=== PATIENT | male | born 1995 | race Caucasian/White ===

== ENCOUNTER 2018-11-18 12:02 | Observation (INO) | payer OTHER ==
[2018-11-18] MEDS ORDERED: NS 0.9% 1000 ML** 1,000 ML IV ONE (12:51)
[2018-11-18] MEDS ORDERED: LORazepam TAB(*) 1 MG PO ONE (12:51)
[2018-11-18 13:02] LABS: ABS Basophils 0.1 10^3/ul (0-0.2); ABS Eosinophils 0.1 10^3/ul (0-0.6); ABS Lymphocytes 1.1 10^3/ul (1.0-4.8); ABS Monocytes 0.3 10^3/ul (0-0.8); ABS Neutrophils 3.6 10^3/ul (1.5-7.7); Eosinophil % 1.2 %; Hematocrit 44 % (42-52); Hemoglobin 15.6 g/dL (14.0-18.0); Lymphocyte % 21.9 %; Mean Corpuscular HGB Conc 35 g/dL (31-36); Mean Corpuscular Hemoglobin 31 pg (27-31); Mean Corpuscular Volume 88 fL (80-94); Mean Platelet Volume 8.1 fL (7.4-10.4); Nucleated Red Blood Cells % 0.1; Platelet Count 262 10^3/uL (150-450); Red Blood Count 5.04 10^6 /uL (4.18-5.48); Red Cell Distribution Width 13 % (10.5-15); White Blood Count 5.2 10^3/uL (3.5-10.8)
[2018-11-18 13:09] LABS: ALT 8 U/L (7-52); AST 15 U/L (13-39); Albumin/Globulin Ratio 1.9 (1-3); Alkaline Phosphatase 70 U/L (34-104); Anion Gap 10 mmol/L (2-11); BUN/Creatinine Ratio 10.5 (8-20); Blood Urea Nitrogen 11 mg/dL (6-24); CO2 Carbon Dioxide 26 mmol/L (22-32); Calcium 9.8 mg/dL (8.6-10.3); Chloride 103 mmol/L (101-111); EGFR African American 107.9 (>60); EGFR Non-African American 89.2 (>60); Globulin 2.6 g/dL (2-4); Glucose 87 mg/dL (70-100); Potassium 3.7 mmol/L (3.5-5.0); Sodium 139 mmol/L (135-145); Total Protein 7.6 g/dL (6.4-8.9)
[2018-11-18 13:18] LABS: Acetaminophen < 15 mcg/mL; Alcohol < 10 mg/dL (<10); Salicylate < 2.50 mg/dL (<30)
[2018-11-18 13:32] LABS: TSH (Thyroid Stimulating Horm) 1.83 mcIU/mL (0.34-5.60)
--- NOTE | 2018-11-18 13:42 | ED ---
Psychiatric Complaint - HPI Summary HPI Summary: A 22 y/o male brought in by [facility] ambulance accompanied by his father presents to [facility] with a chief complaint of a suicide attempt today. The patient took 20 pills of Benadryl at around 09:00 today. His father thought that the patient was going to graduate, but the patient told his father today that he failed a couple of classes. The patient is reportedly delusional and confused. He has not attempted suicide before but states that he is depressed. Pt denies any fever, chills, erythema of eyes, sore throat, CP, SOB, cough, abdominal pain, N/ V, dysuria, hematuria, myalgia, edema, rash, or dizziness. - History Of Current Complaint Chief Complaint: EDSuicidal Time Seen by Provider: 11/18/18 12:05 Hx Obtained From: Patient, Family/Nitrating Acid Mixer, EMS Onset/Duration: Sudden Onset, Lasting Hours, Still Present Timing: Hours Severity Initially: Severe Severity Currently: Severe Character: Depressed Aggravating Factor(s): Nothing Alleviating Factor(s): Nothing Associated Signs And Symptoms: Positive: Confused Has Suicidal: Reports: Thoughts, With A Plan, Demonstrates Gesture Has Homicidal: Denies: Thoughts - Allergies/Home Medications Allergies/Adverse Reactions: Allergies Allergy/AdvReac Type Severity Reaction Status Date / Time No Known Allergies Allergy Verified 11/18/18 13:17 Home Medications: Home Medications NK [No Home Medications Reported] 11/18/18 [History Confirmed 11/18/18] PMH/Surg Hx/FS Hx/Imm Hx Endocrine/Hematology History: Denies: Hx Diabetes Cardiovascular History: Denies: Hx Hypertension - Surgical History Surgery Procedure, Year, and Place: wisdom teeth removed. varicose veins scrotum Infectious Disease History: No Infectious Disease History: Denies: Traveled Outside the [place] in Last 30 Days - Family History Known Family History: Negative: Hypertension, Diabetes - Social History Alcohol Use: Rare Substance Use Type: Reports: None Smoking Status (MU): Never Smoked Tobacco Review of Systems Negative: Fever, Chills Negative: Erythema Negative: Sore Throat Negative: Chest Pain Negative: Shortness Of Breath, Cough Negative: Abdominal Pain, Vomiting, Nausea Negative: dysuria, hematuria Negative: Myalgia, Edema Negative: Rash Neurological: Negative - dizziness Psychological: Other - positive: suicide attempt, took 20 Benadryl All Other Systems Reviewed And Are Negative: Yes Physical Exam - Summary Physical Exam Summary: Constitutional: Well-developed, Well-nourished, Alert. (-) Distressed Skin: flushed HENT: Normocephalic; Atraumatic, Eyes: Conjunctiva normal, nystagmus Neck: Musculoskeletal ROM normal neck. (-) JVD, (-) Stridor, (-) Tracheal deviation Cardio: tachycardic, Heart sounds normal; Intact distal pulses; The pedal pulses are 2+ and symmetric. Radial pulses are 2+ and symmetric. (-) Murmur Pulmonary/Chest wall: Effort normal. (-) Respiratory distress, (-) Wheezes, (-) Rales Abd: Soft, (-) tenderness, (-) Distension, (-) Guarding, (-) Rebound Musculoskeletal: (-) Edema Lymph: (-) Cervical adenopathy Neuro: Alert, Oriented x3, confused Psych: Mood and affect Normal Triage Information Reviewed: Yes Vital Signs On Initial Exam: Initial Vitals Temp Pulse Resp BP Pulse Ox 99.3 F 99 15 149/97 100 11/18/18 12:05 11/18/18 12:05 11/18/18 12:05 11/18/18 12:05 11/18/18 12:05 Vital Signs Reviewed: Yes Diagnostics - Vital Signs Vital Signs Temp Pulse Resp BP Pulse Ox 11/18/18 13:17 19 11/18/18 12:05 99.3 F 99 15 149/97 100 - Laboratory Lab Results: Lab Results 11/18/18 11/18/18 Range/Units 12:38 12:38 WBC 5.2 (3.5-10.8) 10^3/uL RBC 5.04 (4.18-5.48) 10^6 /uL Hgb 15.6 (14.0-18.0) g/dL Hct 44 (42-52) % MCV 88 (80-94) fL MCH 31 (27-31) pg MCHC 35 (31-36) g/dL RDW 13 (10.5-15) % Plt Count 262 (150-450) 10^3/uL MPV 8.1 (7.4-10.4) fL Neut % (Auto) 69.1 % Lymph % (Auto) 21.9 % Elbert % (Auto) 6.3 % Eos % (Auto) 1.2 % Baso % (Auto) 1.5 % Absolute Neuts (auto) 3.6 (1.5-7.7) 10^3/ul Absolute Lymphs (auto) 1.1 (1.0-4.8) 10^3/ul Absolute Monos (auto) 0.3 (0-0.8) 10^3/ul Absolute Eos (auto) 0.1 (0-0.6) 10^3/ul Absolute Basos (auto) 0.1 (0-0.2) 10^3/ul Absolute Nucleated RBC 0.0 10^3/ul Nucleated RBC % 0.1 Sodium 139 (135-145) mmol/L Potassium 3.7 (3.5-5.0) mmol/L Chloride 103 (101-111) mmol/L Carbon Dioxide 26 (22-32) mmol/L Anion Gap 10 (2-11) mmol/L BUN 11 (6-24) mg/dL Creatinine 1.05 (0.67-1.17) mg/dL Est GFR ( Amer) 107.9 (>60) Est GFR (Non-Af Amer) 89.2 (>60) BUN/Creatinine Ratio 10.5 (8-20) Glucose 87 (70-100) mg/dL Calcium 9.8 (8.6-10.3) mg/dL Total Bilirubin 1.00 (0.2-1.0) mg/dL AST 15 (13-39) U/L ALT 8 (7-52) U/L Alkaline Phosphatase 70 (34-104) U/L Total Protein 7.6 (6.4-8.9) g/dL Albumin 5.0 (3.2-5.2) g/dL Globulin 2.6 (2-4) g/dL Albumin/Globulin Ratio 1.9 (1-3) TSH 1.83 (0.34-5.60) mcIU/mL Salicylates < 2.50 (<30) mg/dL Acetaminophen < 15 mcg/mL Serum Alcohol < 10 (<10) mg/dL Result Diagrams: 11/18/18 12:38 11/18/18 12:38 Lab Statement: Any lab studies that have been ordered have been reviewed, and results considered in the medical decision making process. - EKG 12:09 Cardiac Rate: NL - 85 bpm EKG Rhythm: Sinus Rhythm Summary of EKG Findings: NSR at 85 bpm, nonspecific, no prior EKG to compare with, no STEMI. Re-Evaluation - Re-Evaluation First Eval Re-Evaluation Time: 19:00 Change: Unchanged Comment: Pt still delusional, unable to complete MHE at this point. Course/Dx - Course Course Of Treatment: A 22 y/o male brought in by [facility] ambulance accompanied by his father presents to [facility] with a chief complaint of a suicide attempt today. The patient took 20 pills of Benadryl at around 09:00 today. His father thought that the patient was going to graduate, but the patient told his father today that he failed a couple of classes. The physical exam revealed that the patient 's skin was flushed, he was tachycardic and confused with nystagmus. EKG showed NSR at 85 bpm, nonspecific, no prior EKG to compare with, no STEMI. In the ED course the patient was given Ativan IV, and Sodium Chloride IV. Bloodwork, chemistries urines and toxicology obtained. The patient will be admitted because upon re-eval he had not yet emerged from delirium. Case discussed with Dr. Willoughby, hospitalist, who accepted the patient for admission. - Differential Dx/Clinical Impression Provider Diagnosis: Anticholinergic crisis, Suicide attempt, Delirium - Physician Notifications Discussed Care Of Patient With: Everett Willoughby Time Discussed With Above Provider: 19:31 Instructed by Provider To: Admit As Inpatient - Critical Care Time Critical Care Time: 30-74 min Discharge - Sign-Out/Discharge Documenting (check all that apply): Patient Departure - admit Patient Received Moderate/Deep Sedation with Procedure: No - Discharge Plan Condition: Fair Disposition: ADMITTED TO [facility] Referrals: No Primary Care Phys,NOPCP [Primary Care Provider] - - Attestation Statements Document Initiated by Scribe: Yes Documenting Scribe: Saman Simpson Provider For Whom Scribe is Documenting (Include Credential): Henry Farnsworth MD Scribe Attestation: Saman Barajas, scribed for Henry Farnsworth MD on 11/18/18 at 1942. Status of Scribe Document: Ready
[2018-11-18] MEDS ORDERED: LORazepam INJ* 2 MG/ML 1 ML VIAL IV PUSH ONE ×2 (17:04→19:09)
[2018-11-18] MEDS ORDERED: Lorazepam PYXIS KEY PRN ×3 (17:04→19:56)
[2018-11-18 18:08] LABS: Urine Appearance Clear; Urine Bilirubin Negative (Negative); Urine Blood Negative (Negative); Urine Color Straw; Urine Glucose Negative (Negative); Urine Ketones 1+ (Negative); Urine Nitrite Negative (Negative); Urine Protein Negative (Negative); Urine Specific Gravity 1.008 (1.010-1.030); Urine Urobilinogen Negative (Negative)
[2018-11-18 18:40] LABS: Urine Benzodiazepine Screen None Detected (None Detect); Urine Opiates Screen None Detected (None Detect)
[2018-11-18] MEDS: NS 0.9% 1000 ML** 2,000 ML IV ONE ×2 (19:20→19:21)
[2018-11-18] MEDS ORDERED: Acetaminophen SUPP* 650 MG SUPP PR ONE (19:48)
[2018-11-18] MEDS ORDERED: LORazepam INJ* 2 MG/ML 1 ML VIAL IV PUSH PRN (19:56)
[2018-11-18 20:36] LABS: Creatine Kinase 78 U/L (10-223)
[2018-11-18 20:39] LABS: Troponin I 0.02 ng/mL (<0.04)
[2018-11-18] MEDS ORDERED: Diazepam SYRINGE* 5 MG/ML 2 ML SYRINGE (10 MG total) IV ONE (21:00)
[2018-11-18] MEDS: NS 0.9% 1000 ML** 1,000 ML IV SCH (21:45)
--- NOTE | 2018-11-18 23:23 | HP ---
CC: [facility]* HISTORY AND PHYSICAL: DATE OF ADMISSION: 11/18/18 PROVIDER: Mary Garay NP. ATTENDING PHYSICIAN: Dr. Nydia Montanez* (dictated by Mary Garay NP). PRIMARY CARE PROVIDER: [facility] CHIEF COMPLAINT: Benadryl overdose. HISTORY OF PRESENT ILLNESS: David is a 22-year-old male who was brought in by [facility] today after it was ascertained that he took 20 plus pills of Benadryl at around 9 o'clock this morning. Much of the history is provided by the family, as the patient is significantly altered. His family came in from out of town from [place] with the understanding that they would be attending graduation this weekend. Apparently, David is not allowed to walk in graduation and did not tell his family that he was not graduating and took what appears to be a box of Benadryl that contained 24 tablets prior to his family's arrival. He did disclose this to his family and did state that he was trying to kill himself. The family members figured out where the [facility] was and took him there. From the critical access hospital clinic, he was referred to the ER for further evaluation. His mother denies any previously known attempts of suicide attempt. David responds no when asked about chest pain, difficulty breathing, abdominal pain, or other concerns. He is also speaking nonsensical words that are difficult to understand. He is apparently visually hallucinating as he is trying to grab objects out of the air and is very agitated and pulling at his lines and telemetry leads. In the ER, Poison Control was consulted and he has received 5 mg of Ativan so far since 12:30 p.m. Per nursing staff, he has not improved and appears to be worsening in terms of delirium and agitation. He has also recently started to have a fever. PAST MEDICAL HISTORY: The patient is unable to contribute. Mother states that he has a history of wisdom teeth removal and had a varicose vein removed from his scrotum. No other known history. HOME MEDICATIONS: None. ALLERGIES: No known allergies. FAMILY HISTORY: Reviewed and noncontributory. There is no known family history of clotting disorders or blood clots. SOCIAL HISTORY: He is not a smoker. The father saw a vodka bottle in his room and his mother discloses that she has noticed transactions at the liquor store on his bank statement, but states that he did not drink alcohol to their knowledge last evening, as they were all out together. Drug use unknown but urine drug screen in the ED is negative. The patient is unable to contribute to the social history. He is a [employer] student, lives by himself in an apartment. His family is in [place]. His parents are here for graduation weekend. His mother, Chapis Hawkins, is his surrogate decision maker in the event of emergency. He is a full code. REVIEW OF SYSTEMS: As per HPI. Unable to obtain a full review of systems secondary to altered mental status. PHYSICAL EXAMINATION GENERAL: This is a young male, lying in the ED stretcher. He does not appear in any acute distress, but does appear to be visually hallucinating as he is grabbing at the air and is very restless. VITAL SIGNS: Temperature 100.7, pulse rate 102, respiratory rate 26, O2 saturation is 96% on room air, and blood pressure is 138/87. HEENT: Head is atraumatic, normocephalic. Pupils are equal, round, and dilated. There is positive nystagmus. Oral mucosa is dry. NECK: Supple with full range of motion. No JVD noted. No stridor noted. No lymphadenopathy appreciated. LUNGS: Clear to auscultation. No wheezes, rales, or rhonchi noted. CARDIAC: Regular rate and rhythm with normal S1, S2 heart sounds. Rate is tachycardic. No murmur appreciated. Pedal pulses are 2+ and present. No peripheral edema noted. ABDOMEN: Soft, nontender, nondistended. Bowel sounds are mildly hypoactive. MUSCULOSKELETAL: There is no clubbing or cyanosis. There is active range of motion of all 4 extremities. SKIN: Hot and dry. He is not diaphoretic. No rashes or wounds noted. NEURO: He is alert. He does respond to his name. He does not respond appropriately when asked where he is or regards to time. He is moving all extremities. He does not follow commands well. DIAGNOSTIC STUDIES/LAB DATA: CBC: WBC 5.2, hemoglobin 15.6, hematocrit 44, platelet count 262. CMP: Sodium 139, potassium 3.7, chloride 103, carbon dioxide 26, BUN 11, creatinine 1.05, glucose 87, calcium 9.8. Total bilirubin 1.00, AST 15, ALT 8, alk phos 70. TSH 1.83. Urinalysis: Negative for nitrites , leukocyte esterase. Toxicology screen shows no detectable illicit substances , and serum alcohol and acetaminophen are within normal limits. EKG reviewed, shows normal sinus rhythm upon arrival. No ST or T-wave changes to indicate STEMI. No previous EKGs for comparison. His QTc is 440 and QRS is 75. ASSESSMENT AND PLAN: This is a 22-year-old male presenting today with concern for diphenhydramine overdose and suicide attempt. He will be admitted to the ICU for further observation and close monitoring. He will be on one-to-one monitoring. Plan is as follows: 1. Diphenhydramine overdose with anticholinergic toxicity. Poison Control was notified by the ER, and I have called the poison control team. The crate tier was notified for need of consult. Per the crate tier, current plan of care is appropriate. Physostigmine is not indicated at this time and carries the risk of seizures; it is also short acting. Poison Control recommends that we continue with supportive care including fluids, cardiac monitoring, and EKG. We should monitor for QRS values that are greater than 100 or QTc values that are greater than 500. He is recommended to continue on fluids. I have had the nursing staff insert a Luz catheter, as there was concern for urinary retention. He should be on cardiac monitoring. He does have some mild tachycardia that does increase with activity and standing. He is beginning to show signs of hyperthermia. I have asked for a core temperature probe Luz to be placed so that we can have accurate temperature monitoring. He is to receive a dose of acetaminophen via suppository now, and this can be repeated as needed. He is currently n.p.o. until he is able to safely demonstrate capability of eating or drinking. We will continue with p.r.n. Ativan, and per the recommendations of Poison Control, we could try a longer-acting benzodiazepine, such as diazepam, to help with management of agitation; will order one time dose of diazepam. We will continue with p.r.n. benzodiazepines per recommendations of Poison Control to help with agitation and monitor closely for resolution of all symptoms. 2. Urinary retention. This is secondary to his anticholinergic toxidrome. He had a postvoid residual of greater than 300 right after he voided and a Luz catheter has been inserted. 3. Suicide attempt. He is ordered a mental health evaluation. He will remain on one-to-one observation until he becomes medically stable and is able to meet with the behavioral health team in order to evaluate a safe treatment plan and discharge plan. 4. FEN: Continue IV hydration and support. Currently n.p.o. until he is able to show that he is safely able to take in p.o. 5. DVT prophylaxis: He has a 0 assessment score on the risk assessment scale. He is not recommended to ambulate at this moment as he is unsteady and unsafe. We will give him HERMILA hose and encourage ambulation when appropriate. 6. Code status: He is a full code. 7. Disposition: Currently observational status in the ICU with plan for mental health evaluation once the patient returns to baseline and becomes more medically stable. Further disposition will be pending his mental health evaluation. TIME SPENT: Approximately 75 minutes was spent on this admission, which includes assessment, review of plan of care as well as review of the records, and consultations with Poison Control and Toxicology. Plan of care was also reviewed with my attending, Dr. Nydia Montanez, who is in agreement. Care was also discussed with the patient's healthcare proxy and parents who are here in town; they are currently staying in [place]. MARY GARAY NP [id number]/CPS #: [id number] MARC
[2018-11-19] MEDS ORDERED: NS 0.9% 500 ML* 500 ML IV ONE (00:28)
[2018-11-19] MEDS: NS 0.9% 1000 ML** 1,000 ML IV SCH (02:07)
[2018-11-19] MEDS ORDERED: Ondansetron INJ* 2 MG/ML VIAL IV PRN (06:48)
[2018-11-19] MEDS ORDERED: Acetaminophen TAB* 325 MG PO PRN (06:48)
[2018-11-19 07:14] LABS: ABS Basophils 0.1 10^3/ul (0-0.2); ABS Eosinophils 0.1 10^3/ul (0-0.6); ABS Lymphocytes 1.8 10^3/ul (1.0-4.8); ABS Monocytes 0.4 10^3/ul (0-0.8); ABS Neutrophils 3.2 10^3/ul (1.5-7.7); Eosinophil % 2.4 %; Hematocrit 40 % (42-52); Hemoglobin 13.8 g/dL (14.0-18.0); Lymphocyte % 32.4 %; Mean Corpuscular HGB Conc 34 g/dL (31-36); Mean Corpuscular Hemoglobin 31 pg (27-31); Mean Corpuscular Volume 89 fL (80-94); Mean Platelet Volume 7.9 fL (7.4-10.4); Nucleated Red Blood Cells % 0.2; Platelet Count 221 10^3/uL (150-450); Red Blood Count 4.53 10^6 /uL (4.18-5.48); Red Cell Distribution Width 13 % (10.5-15); White Blood Count 5.7 10^3/uL (3.5-10.8)
[2018-11-19 07:29] LABS: Albumin 3.8 g/dL (3.2-5.2); Albumin/Globulin Ratio 1.8 (1-3); BUN/Creatinine Ratio 7.4 (8-20); Calcium 8.3 mg/dL (8.6-10.3); EGFR African American 122.6 (>60); EGFR Non-African American 101.3 (>60); Globulin 2.1 g/dL (2-4); Potassium 3.6 mmol/L (3.5-5.0); Total Protein 5.9 g/dL (6.4-8.9)
--- NOTE | 2018-11-19 07:46 | DCNOTE ---
Subjective Date of Service: 11/19/18 Interval History: He denies chest pain, SOB, any other pain, nausea, visual change. He feels his mental acuity is normal. No new c/o. Objective Active Medications: Acetaminophen (Tylenol Tab*) 650 mg PO Q4H PRN PRN Reason: FEVER/PAIN Ondansetron HCl (Zofran Inj*) 4 mg IV Q6H PRN PRN Reason: NAUSEA Vital Signs - 8 hr 11/18/18 11/19/18 11/19/18 23:45 00:00 00:15 Temperature 97.2 F 97.2 F 97.2 F Pulse Rate 65 65 64 Respiratory 17 18 17 Rate Blood Pressure 101/56 101/50 99/55 (mmHg) O2 Sat by Pulse 94 94 94 Oximetry 11/19/18 11/19/18 11/19/18 00:25 00:30 00:45 Temperature 97.2 F 97.2 F 97.2 F Pulse Rate 63 64 66 Respiratory 17 17 22 Rate Blood Pressure 100/54 107/51 (mmHg) O2 Sat by Pulse 95 95 97 Oximetry 11/19/18 11/19/18 11/19/18 01:00 01:15 01:30 Temperature 97.2 F 97.2 F 97.3 F Pulse Rate 60 73 69 Respiratory 18 24 18 Rate Blood Pressure 102/52 121/78 131/81 (mmHg) O2 Sat by Pulse 97 100 100 Oximetry 11/19/18 11/19/18 11/19/18 01:45 02:00 02:15 Temperature 97.5 F 97.9 F 98.2 F Pulse Rate 72 68 76 Respiratory 17 20 19 Rate Blood Pressure 142/92 136/80 137/82 (mmHg) O2 Sat by Pulse 100 99 99 Oximetry 11/19/18 11/19/18 11/19/18 02:30 02:45 03:00 Temperature 98.4 F 98.6 F 99.0 F Pulse Rate 75 72 68 Respiratory 22 21 18 Rate Blood Pressure 131/87 127/90 133/75 (mmHg) O2 Sat by Pulse 98 98 98 Oximetry 11/19/18 11/19/18 11/19/18 03:15 03:30 03:33 Temperature 99.0 F 98.8 F Pulse Rate 71 72 Respiratory 18 16 17 Rate Blood Pressure 117/74 114/69 (mmHg) O2 Sat by Pulse 98 95 Oximetry 11/19/18 11/19/18 11/19/18 03:45 04:00 04:01 Temperature 98.6 F 98.4 F 98.4 F Pulse Rate 73 72 77 Respiratory 17 16 16 Rate Blood Pressure 109/65 110/61 (mmHg) O2 Sat by Pulse 94 95 95 Oximetry 11/19/18 11/19/18 11/19/18 04:15 04:30 04:45 Temperature 98.4 F 98.2 F 98.1 F Pulse Rate 75 72 75 Respiratory 17 16 18 Rate Blood Pressure 105/62 114/63 112/62 (mmHg) O2 Sat by Pulse 94 94 96 Oximetry 11/19/18 11/19/18 11/19/18 05:00 05:01 05:15 Temperature 98.1 F 98.1 F 98.1 F Pulse Rate 62 57 66 Respiratory 16 13 15 Rate Blood Pressure 106/55 107/59 (mmHg) O2 Sat by Pulse 97 97 96 Oximetry 11/19/18 11/19/18 11/19/18 05:30 05:45 06:00 Temperature 98.1 F 97.9 F 97.9 F Pulse Rate 67 67 67 Respiratory 16 15 15 Rate Blood Pressure 105/57 104/62 108/60 (mmHg) O2 Sat by Pulse 96 96 96 Oximetry 11/19/18 11/19/18 11/19/18 06:01 06:15 06:30 Temperature 97.9 F 97.9 F 97.7 F Pulse Rate 67 65 67 Respiratory 15 24 15 Rate Blood Pressure 109/55 109/62 (mmHg) O2 Sat by Pulse 96 96 96 Oximetry 11/19/18 06:45 Temperature 97.7 F Pulse Rate 66 Respiratory 15 Rate Blood Pressure 113/60 (mmHg) O2 Sat by Pulse 96 Oximetry Oxygen Devices in Use Now: None Appearance: Alert, supine in ICU bed. Neutral/flat affect, cooperative, quiet. Eyes: No Scleral Icterus Neck: NL Appearance and Movements; NL JVP, No Thyroid Enlargement, Masses Respiratory: Symmetrical Chest Expansion and Respiratory Effort, Clear to Auscultation, Clear to Percussion Cardiovascular: NL Sounds; No Murmurs; No JVD, RRR, No Edema, - Extremities: No Edema, No Clubbing, Cyanosis, - Skin: No Rash or Ulcers, No Nodules or Sclerosis, - Neurological: Alert and Oriented x 3, NL Sensation Result Diagrams: 11/19/18 07:05 11/19/18 07:05 Additional Lab and Data: Lab Results 11/18/18 11/18/18 Range/Units 12:38 12:38 WBC 5.2 (3.5-10.8) 10^3/uL RBC 5.04 (4.18-5.48) 10^6 /uL Hgb 15.6 (14.0-18.0) g/dL Hct 44 (42-52) % MCV 88 (80-94) fL MCH 31 (27-31) pg MCHC 35 (31-36) g/dL RDW 13 (10.5-15) % Plt Count 262 (150-450) 10^3/uL MPV 8.1 (7.4-10.4) fL Neut % (Auto) 69.1 % Lymph % (Auto) 21.9 % Cedar % (Auto) 6.3 % Eos % (Auto) 1.2 % Baso % (Auto) 1.5 % Absolute Neuts (auto) 3.6 (1.5-7.7) 10^3/ul Absolute Lymphs (auto) 1.1 (1.0-4.8) 10^3/ul Absolute Monos (auto) 0.3 (0-0.8) 10^3/ul Absolute Eos (auto) 0.1 (0-0.6) 10^3/ul Absolute Basos (auto) 0.1 (0-0.2) 10^3/ul Absolute Nucleated RBC 0.0 10^3/ul Nucleated RBC % 0.1 Sodium 139 (135-145) mmol/L Potassium 3.7 (3.5-5.0) mmol/L Chloride 103 (101-111) mmol/L Carbon Dioxide 26 (22-32) mmol/L Anion Gap 10 (2-11) mmol/L BUN 11 (6-24) mg/dL Creatinine 1.05 (0.67-1.17) mg/dL Est GFR ( Amer) 107.9 (>60) Est GFR (Non-Af Amer) 89.2 (>60) BUN/Creatinine Ratio 10.5 (8-20) Glucose 87 (70-100) mg/dL Calcium 9.8 (8.6-10.3) mg/dL Total Bilirubin 1.00 (0.2-1.0) mg/dL AST 15 (13-39) U/L ALT 8 (7-52) U/L Alkaline Phosphatase 70 (34-104) U/L Total Protein 7.6 (6.4-8.9) g/dL Albumin 5.0 (3.2-5.2) g/dL Globulin 2.6 (2-4) g/dL Albumin/Globulin Ratio 1.9 (1-3) TSH 1.83 (0.34-5.60) mcIU/mL Salicylates < 2.50 (<30) mg/dL Acetaminophen < 15 mcg/mL Serum Alcohol < 10 (<10) mg/dL Microbiology and Other Data: Microbiology 11/18/18 21:50 Nasal Screen MRSA (PCR) - Final Nasal Mrsa Not Detected Assess/Plan/Problems-Billing Assessment: - Patient Problems (1) Diphenhydramine overdose Current Visit: Yes Status: Acute Code(s): T45.0X1A - POISONING BY ANTIALLERG /ANTIEMETIC, ACCIDENTAL, INIT SNOMED Code(s): 097016203 Comment: Clinical effects have resolved. Remove Luz, reg diet, stop IV fluids. Continue cardiac cath technologist for now. I spoke with Dr. Laurent, later with patient and both parents. He agrees to voluntary admission to the MHU.
[2018-11-19 15:46] VITALS: BP 122/78
--- NOTE | 2018-11-19 16:53 | DS ---
DISCHARGE SUMMARY: DATE OF ADMISSION: DATE OF DISCHARGE: 11/19/18 HISTORY: This 22-year-old man presented after drug overdose. He was upset about not graduating from school, his friends came for his graduation ceremony, which he could not participate and he took a b ottle of diphenhydramine, either 20 or 24 tablets or somewhere in between. He was very delirious on arrival to the emergency room, he was given some sedation. The next morning, he completely cleared, he was able to eat normally, converse normally, felt his mental acuity was normal. He did have urina ry retention in the beginning, but the Luz catheter was removed and he voided normally. He was abl e to get up and walk around normally. Exam was unremarkable. Dr. Laurent consulted on him and brionna lyon involuntary admission to mental health unit, which the patient accepted. FINAL DIAGNOSIS: Suicide attempt. DISCHARGE MEDICATIONS: None. DISPOSITION ON DISCHARGE: Discharged to the mental health unit. CONDITION ON DISCHARGE: Stable. [id number]/[facility] #: [id number]
--- NOTE | 2018-11-19 18:07 | CONS ---
PSYCHIATRIC CONSULTATION / HISTORY AND PHYSICAL: DATE OF CONSULT: 11/19/18 REQUESTING PHYSICIAN: Blayne Alex MD. Psychiatric consultation is requested by Dr. Blayne Alex on this [employer] senior student, who was brought in by ambulance from [facility] after taking an intentional overdose of 20 pills of Benadryl 25 mg in a suicide attempt. The patient was briefly admitted to the intensive care unit and is now medically cleared. Consultation is to assess the patient and to give recommendation for disposition. 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 living in an apartment off campus. CHIEF COMPLAINT: "This was when everything came together, I could no longer put things off!" HISTORY OF PRESENT ILLNESS: The patient relates that since coming to [place] 4 years ago, he has always felt socially isolated. He had one friend, who also was from [place], where the patient is from, but in the second semester of his [employer] year, the friend left [place] and moved to [place] and this led to him feeling depressed, unmotivated, spending more time on the internet and less time studying, his grades declined, he failed 1 class that spring, that he was told he could retake it at the end of his senior year. Last fall, he moved out of his his apartment on campus, to live independently in apartment in [facility]. He initially tried to cook his meals, but quickly gave up and started eating takeout. At some point, he felt guilty that he was wasting his parents' money and he started restricting food, reports that he was eating 1 meal every other day which made him feel more tired with impaired attention and concentration. Last fall. he was given a simple assignment to write a 2-page essay about what he would like to do with his mechanical engineering degree. He asserts that half way through college, he realized that he did not like mechanical engineering, so he procrastinated on the assignment and did not submit it in time. Last semester, he was told that he had to make up for the two classes in order to graduate. He was given options of classes he could take that would give him credits for the classes he missed, but the semester was in process and there was little time to complete the alternative assignments and his advisor instructed him to call the professor and to try to get an "override," which he did no do. This week is graduation week. The patient woke up yesterday in a panic as his parents were scheduled to arrive around 10:30 for [place]. At 09: 30, he said he 20 pills of Benadryl 25 mg. His parents showed up early and he disclosed that he had not met requirements to graduate and that he had also taken overdose of pills. His parents rushed him to [facility], where he was then transported to this hospital by ambulance. He was in a delirious state, was admitted to ICU and was medically stabilized and the consultation was requested. The patient today denies suicidal ideation, and he is able to contract for safety. He endorses feeling shame and guilt for letting his family down. REVIEW OF PSYCHIATRIC SYMPTOMS: The patient denies symptoms of psychosis or williams. He endorses anxiety symptoms related to academic stress. He denies panic attacks, obsessive thoughts or compulsive rituals. He denies previous diagnosis of a ADHD or learning disorder. He admits to a history of restricting food, but denies that preoccupation with weight or self-image, he reported that was simply trying to save money. PAST PSYCHIATRIC HISTORY: He denies any previous formal contact with mental health. SUICIDE/HOMICIDE HISTORY: The patient denies any history of self-injurious behavior. He reports that his taking the Benadryl was his first and only suicide attempt. He now feels remorseful. TRAUMA/ABUSE HISTORY: He denies. PAST MEDICAL HISTORY: The patient is status post overdose of Benadryl and treatment for delirium in the ICU setting. He denies any other active medical problems and a history of head trauma with loss of consciousness, seizures or surgeries. He does not currently have a primary care physician. REVIEW OF MEDICAL SYMPTOMS: Negative. PHYSICAL EXAMINATION: Please refer to history and physical on this patient by Dr. Alexia Gonsales dated 11/18/18 and discharge note from Dr. Blayne Alex dated today. FAMILY HISTORY: The patient denies any family history of psychiatric illnesses or completed suicides. SUBSTANCE ABUSE HISTORY: The patient reports drinking about six packs of beer twice a month, sometimes to the point of "tipsiness". He denies legal, medical , or social consequences. He denies the use of tobacco or illicit drugs. PERSONAL AND SOCIAL HISTORY: The patient is the younger of two children from an intact family with parents. He reports growing up in a supportive home environment. His oldest sister is working in finances in [place] and she is to a traffic assistant. The patient's mother is a agility instructor and father is a health social work professor at the [employer]. 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 He reports that he did well academically, but half way to his geraldo year, he became depressed and unmotivated and fell behind. He identifies as being bisexual, although he has neither dated and nor been sexually active. He describes himself as an atheist, although his family is rastafarian. 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 MENTAL STATUS EXAMINATION: Finds a 22-year-old white male with long dark hair, pulled back, who looks his stated age. He is adequately groomed, dressed in hospital gown, in bed eating his lunch. He makes fair eye contact. He presents as cooperative. He exhibits some degree of psychomotor retardation. Speech is of normal rate, rhythm and volume. His affect is sad, tearful at times. Mood is depressed. Thoughts are linear and goal directed. No evidence of formal thought disorder. No overt delusions. He denies auditory or visual hallucinations. The patient denies active suicidal ideation or urges to self-mutilate and the contract for safety. His insight and judgment are fair. His impulse control is good. He is alert. He is oriented to time, place, and person. Attention, memory, and concentration are fair. Fund of knowledge is adequate. Intelligence is estimated to be normal average range. SUMMARY: First inpatient psychiatric admission for this 22-year-old senior [employer] student, who was brought in by ambulance from campus after taking an intentional overdose on Benadryl pills in a suicide attempt in the context of academic set back. His medical history is remarkable for the fact that he is status post overdose of diphenhydramine, and delirium and treatment in the intensive care unit. He describes occasional drinking and denies any family history of psychiatric illnesses or completed suicides. He describes stressors of feeling that he has disappointed his family because of not meeting requirements for graduation and never disclosing this until his family came to town for his graduation. He reports feeling socially isolated. DIAGNOSTIC IMPRESSIONS: 1. Adjustment disorder with mixed disturbances of emotion and conduct. 2. Major depressive disorder, recurrent, moderate, without psychotic features. TREATMENT PLAN: The patient was offered voluntary admission to the inpatient psychiatric unit for further evaluation and to explore possibility of medication based on result of psychological testing. He expressed interest, but requested time to discuss it first with his parents, who are out to lunch. The patient is, not at this point, a risk for suicide given the fact that he will be with his parents and who are in town to drive him home next Wednesday. In the event that he declines inpatient psychiatric admission, he can be discharged with his family with recommendation for outpatient follow up care either locally or in [place] when he returns there. [id number]/CPS #: [id number] MTDD
[2018-11-19] MEDS ORDERED: Nicotine Patch Removal NOTE PATCH OFF SCH (21:00)
[2018-11-20] MEDS ORDERED: Nicotine PATCH 21 MG/24 HR* PATCH TRANSDERM SCH (08:00)
[2018-11-20] MEDS ORDERED: Nicotine PATCH 7 MG/24 HR* PATCH TRANSDERM SCH (08:00)
[2018-11-20] MEDS ORDERED: Nicotine PATCH 14 MG/24 HR* PATCH TRANSDERM SCH (08:00)
== END 2018-11-19 19:05 ==
LOC: EDBD → ED 12:02 → ICU 19:40 → MEDTELE 11-19 07:31 → BSU 11-19 15:52
PROVIDERS: ADMIT Hospitalist; ATTEND Internal Medicine
DX: T45.0X2A Poisoning by antiallergic and antiemetic drugs, intentional self-harm, initial encounter (principal); Y92.9 Unspecified place or not applicable; R41.0 Disorientation, unspecified; F43.20 Adjustment disorder, unspecified
CPT/HCPCS: 36415; 80053; 80307; 80320; 80329; 81003; 82550; 84443; 84484; 85025; 87641; 93005; 96374; 96375; 99285; A9270-GY; G0378; G0480; J2060; J3360

== ENCOUNTER 2018-11-19 19:15 | Inpatient (IN) | payer OTHER ==
--- NOTE | 2018-11-20 15:14 | ADMNOTE ---
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 living in an apartment off campus. CHIEF COMPLAINT: "This was when everything came together, I could no longer put things off!" HISTORY OF PRESENT ILLNESS: The patient relates that since coming to [place] 4 years ago, he has always felt socially isolated. He had one friend, who also was from [place], where the patient is from, but in the second semester of his [employer] year, the friend left [place] and moved to [place] and this led to him feeling depressed, unmotivated, spending more time on the internet and less time studying, his grades declined, he failed 1 class that spring, that he was told he could retake it at the end of his senior year. Last fall, he moved out of his his apartment on campus, to live independently in apartment in town. He initially tried to cook his meals, but quickly gave up and started eating takeout. At some point, he felt guilty that he was wasting his parents' money and he started restricting food, reports that he was eating 1 meal every other day which made him feel more tired with impaired attention and concentration. Last fall. he was given a simple assignment to write a 2-page essay about what he would like to do with his mechanical engineering degree. He asserts that half way through college, he realized that he did not like mechanical engineering, so he procrastinated on the assignment and did not submit it in time. Last semester, he was told that he had to make up for the two classes in order to graduate. He was given options of classes he could take that would give him credits for the classes he missed, but the semester was in process and there was little time to complete the alternative assignments and his advisor instructed him to call the professor and to try to get an "override," which he did no do. This week is graduation week. The patient woke up yesterday in a panic as his parents were scheduled to arrive around 10:30 for [place]. At 09: 30, he said he 20 pills of Benadryl 25 mg. His parents showed up early and he disclosed that he had not met requirements to graduate and that he had also taken overdose of pills. His parents rushed him to [place], where he was then transported to this hospital by ambulance. He was in a delirious state, was admitted to ICU and was medically stabilized and the consultation was requested. The patient today denies suicidal ideation, and he is able to contract for safety. He endorses feeling shame and guilt for letting his family down. REVIEW OF PSYCHIATRIC SYMPTOMS: The patient denies symptoms of psychosis or williams. He endorses anxiety symptoms related to academic stress. He denies panic attacks, obsessive thoughts or compulsive rituals. He denies previous diagnosis of a ADHD or learning disorder. He admits to a history of restricting food, but denies that preoccupation with weight or self-image, he reported that was simply trying to save money. PAST PSYCHIATRIC HISTORY: He denies any previous formal contact with mental health. SUICIDE/HOMICIDE HISTORY: The patient denies any history of self-injurious behavior. He reports that his taking the Benadryl was his first and only suicide attempt. He now feels remorseful. TRAUMA/ABUSE HISTORY: He denies. PAST MEDICAL HISTORY: The patient is status post overdose of Benadryl and treatment for delirium in the ICU setting. He denies any other active medical problems and a history of head trauma with loss of consciousness, seizures or surgeries. He does not currently have a primary care physician. REVIEW OF MEDICAL SYMPTOMS: Negative. PHYSICAL EXAMINATION: Please refer to history and physical on this patient by Dr. Alexia Gonsales dated 11/18/18 and discharge note from Dr. Blayne Alex dated today. FAMILY HISTORY: The patient denies any family history of psychiatric illnesses or completed suicides. SUBSTANCE ABUSE HISTORY: The patient reports drinking about six packs of beer twice a month, sometimes to the point of "tipsiness". He denies legal, medical , or social consequences. He denies the use of tobacco or illicit drugs. PERSONAL AND SOCIAL HISTORY: The patient is the younger of two children from an intact family with parents. He reports growing up in a supportive home environment. His oldest sister is working in [employer] in [place] and she is to a pulp mill supervisor. The patient's mother is a reading instructor and father is a adjunct professor at the [employer]. 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 He reports that he did well academically, but half way to his geraldo year, he became depressed and unmotivated and fell behind. He identifies as being bisexual, although he has neither dated and nor been sexually active. He describes himself as an atheist, although his family is jew. 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 Past Medical History: PAST MEDICAL HISTORY: The patient is status post overdose of Benadryl and treatment for delirium in the ICU setting. He denies any other active medical problems and a history of head trauma with loss of consciousness, seizures or surgeries. He does not currently have a primary care physician. . REVIEW OF MEDICAL SYMPTOMS: Negative. . PHYSICAL EXAMINATION: Please refer to history and physical on this patient by Dr. Alexia Gonsales dated 11/18/18 and discharge note from Dr. Blayne Alex dated today. Exam Appearance: Thin Framed Hygiene: Normal Grooming: Well Kept Psychomotor Activities: Normal Exhibits Abnormal Movement: No Attitude and Relatedness: Cooperative Eye Contact: Fair - Speech Quality: Unpressured Latencies: Normal Quantity: Terse Patient's Decription of Mood: "Okay" Observed Affect: Constricted Affect Consistent with: Dysphoria Patient's Thought Process: Coherent, Goal Directed Thought Content: No Passive Wish, No Suicidal Planning, No Homicidal Ideation, No Paranoid Ideation Experiencing Hallucinations: No, Sensorium is Clear Level of Consciousness: Alert Orientation: Yes Intact Impulse Control: Intact Insight and Judgement: Fair Impression - Impression Clinical Impression: SUMMARY: First inpatient psychiatric admission for this 22-year-old senior [employer] student, who was brought in by ambulance from campus after taking an intentional overdose on Benadryl pills in a suicide attempt in the context of academic set back. His medical history is remarkable for the fact that he is status post overdose of diphehydramine, and delirium and treatment in the intensive care unit. He describes occasional drinking and denies any family history of psychiatric illnesses or completed suicides. He describes stresses of feeling that he has disappointed his family because of not meeting requirements for graduation and never disclosing this until his family came to [facility] for his graduation. He reports feeling socially isolated. DIAGNOSTIC IMPRESSIONS: 1. Adjustment disorder with mixed disturbances of emotion and conduct. 2. Major depressive disorder, recurrent, moderate, without psychotic features. Inpatient DSM-V Dx: F33.1 Merits Inpatient Hospitalization: Yes Plan - Treatment Plan Treatment Plan: TREATMENT PLAN: Admit to mental health unit, 15-minute checks, full code status. Legal status is voluntary. Initiate comprehensive milieu, individual, and group psychotherapeutic support. The patient has given consent for a trial of Lexapro to target his depressive and anxiety symptoms after hearing of the indication, risks, benefits and alternatives. The patient will also be asked to complete an MMPI questionnaire. Discharge planning will involve referring him to outpatient psychiatric providers when he is psychiatrically stable and ready for discharge home. Continued Medication Management: Start Medication - Discharge Plan Discharge Plan: Outpatient Follow Up Outpatient Program: Counsel[facility] Services at [place]
[2018-11-20] MEDS: Escitalopram * 5 MG TAB PO SCH (17:07)
[2018-11-21] MEDS: Escitalopram * 5 MG TAB PO SCH (10:05)
--- NOTE | 2018-11-21 11:38 | PN ---
Subjective - Subjective Date of Service: 11/21/18 Service Type: 53718 Hosp care 15 min low complexity Subjective: David is seen in Holiday coverage here on the [facility]. He is slightly anxious but steadfastly denies SI and is grateful that his overdose on Benadryl did not end his life. He is working on the MMPI and states that he spoke with the [facility] Storeroom Clerk over the phone with plans to speak further tomorrow. I understand that he has several academic stressors that have complicated his ability to graduate from college. At this time he is eager for discharge and is hopeful that he can return with his family to [place] and follow up with outpatient services there. He is ambivalent about antidepressant therapy. Objective - General Observations Appearance: Well Groomed Appears Stated Age: No Stature: WNL Posture: WNL Eye Contact: Average Behavior/Activity: WNL - Interaction Observations Attitude Towards Examiner: Cooperative Stated Mood: Anxious Affect: Restricted Speech Pattern/Tone: Clear, Appropriate, Normal Volume Thought Process: Coherent Perception: WNL Thought Content: WNL Hallucination Type: None Delusion Type: None - Cognitive Function Orientation: A&O x 4 Level of Consciousness: Awake Cognition: WNL Estimated Intelligence: Normal Insight: WNL Judgment Within Normal Limits: Yes - Medication Compliance Cooperative with Inpatient Medication Regimen: Yes - Group Participation Participates in Group Activities: Yes Assessment - Assessment Merits Inpatient Hospitalization: Diagnosis Determination, Consolidate Improvements, Pending Safe DC Plan Inpatient DSM-V Dx: F33.1 Clinical Impression: SUMMARY: First inpatient psychiatric admission for this 22-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 His medical history is remarkable for the fact that he is status post overdose of Benadryl, diphenhydramine, and delirium and treatment in the intensive care unit. He describes occasional drinking and denies any family history of psychiatric illness of completed suicide. He describes stressors of feeling that he has disappointed his family because of not meeting requirement for graduation and never disclosing this until his family came to town for his graduation, also reports strong feeling of isolation. DIAGNOSTIC IMPRESSIONS: 1. Adjustment disorder with mixed disturbance of emotion and conduct. 2. Major depressive disorder, recurrent, moderate, without psychotic features. Plan - Plan Treatment Plan: The patient awaits MMPI results for diagnostic validation. Uncertain if he wants antidepressant therapy. Has engaged already with [facility]. Family supportive. Continue inpatient treatment. Continued Medication Management: Consider Medication Medications: Current Medications Escitalopram Oxalate (Lexapro *) 5 mg PO DAILY DAYO Last Admin: 11/21/18 10:05 Dose: 5 mg - Discharge Plan Discharge Plan: Inpatient Hospitalization Lab Results - Lab Results Lab Results: 11/20/18 11/20/18 07:20 07:20 Hemoglobin A1c 4.8 Triglycerides 71 Cholesterol 171 LDL Cholesterol 99 HDL Cholesterol 58.0
[2018-11-22] MEDS: Escitalopram * 5 MG TAB PO SCH (09:16)
--- NOTE | 2018-11-22 13:19 | PN ---
[facility]: Group Therapy Note - Service Type Service Type: [id number] Group Psychotherapy - Cognitive Behavioral Group Therapy ( CBT):Patient was attentive and participatory in CBT programming this morning, and remained in good behavioral control. Patient expressed positive insights regarding relevant treatment interventions and goals.
--- NOTE | 2018-11-22 14:58 | PN ---
Subjective - Subjective Date of Service: 11/22/18 Service Type: 42130 Hosp care 15 min low complexity Subjective: Patient reports feeling relieved that he is able to openly discuss struggling with depression. 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 Patient reports agreement with antidepressant and states that he spoke with his sister, who is a biochemistry technician, prior to starting the escitalopram. Patient agrees to meet with parents and treatment team to discuss discharge and safety planning. Objective - General Observations Appearance: Well Groomed Stature: Thin Posture: WNL Eye Contact: Average Behavior/Activity: WNL - Interaction Observations Attitude Towards Examiner: Cooperative Stated Mood: Euthymic, Anxious Affect: Full Speech Pattern/Tone: Clear, Appropriate, Normal Volume Thought Process: Coherent, Goal Directed Perception: WNL Thought Content: Depressive, Self-Deprecatory Hallucination Type: Denies Delusion Type: Denies - Cognitive Function Orientation: A&O x 4 Level of Consciousness: Alert Cognition: WNL Estimated Intelligence: Normal Insight: WNL Judgment Within Normal Limits: Yes - Medication Compliance Cooperative with Inpatient Medication Regimen: Yes - Group Participation Participates in Group Activities: Yes Assessment - Assessment Merits Inpatient Hospitalization: For Immediate Safety, For Stabilization, For Discharge Planning, Pending Safe DC Plan Inpatient DSM-V Dx: F33.1 Clinical Impression: SUMMARY: First inpatient psychiatric admission for this 22-year-old senior [employer] student, who was brought in by ambulance from campus after taking an intentional overdose on Benadryl pills in a suicide attempt in the context of academic set back. His medical history is remarkable for the fact that he is status post overdose of Benadryl, diphenhydramine, and delirium and treatment in the intensive care unit. He describes occasional drinking and denies any family history of psychiatric illness of completed suicide. He describes stressors of feeling that he has disappointed his family because of not meeting requirement for graduation and never disclosing this until his family came to town for his graduation, also reports strong feeling of isolation. DIAGNOSTIC IMPRESSIONS: 1. Adjustment disorder with mixed disturbance of emotion and conduct. 2. Major depressive disorder, recurrent, moderate, without psychotic features. Plan - Plan Treatment Plan: Patient has agreed to start escitalopram. Has engaged already with campus crisis services at [place]. Family supportive. Continue inpatient treatment. may decrease to q30min and allow staff pass/ computer use. family meeting tentative 11/23 Continued Medication Management: Start Medication Medications: Current Medications Escitalopram Oxalate (Lexapro *) 5 mg PO DAILY DAYO Last Admin: 11/22/18 09:16 Dose: 5 mg - Discharge Plan Discharge Plan: Inpatient Hospitalization
[2018-11-23 08:18] VITALS: BP 128/84
[2018-11-23] MEDS: Escitalopram * 5 MG TAB PO SCH (09:01)
--- NOTE | 2018-11-23 10:52 | DCNOTE ---
Subjective - Subjective Service Types: 23822 Hosp DC Day Mgmt complex over 30 min Discharge Date: 11/23/18 Subjective: Patient is euthymic with bright affect. He denies side effects from escitalopram. He agrees to a meeting with his parents and treatment team. We discuss major depressive d/o and recommendations for ongoing treatment. Patient denies SI or passive wish. Patient endorses future orientation, including completing his college degree. Patient and parents noted to have positive and loving and interactions. Objective - General Observations Appearance: Well Groomed Stature: Thin Posture: WNL Eye Contact: Average Behavior/Activity: WNL - Interaction Observations Attitude Towards Examiner: Cooperative Stated Mood: Euthymic Affect: Bright Speech Pattern/Tone: Clear, Appropriate, Normal Volume Thought Process: Coherent Perception: WNL Thought Content: WNL Hallucination Type: None Delusion Type: None - Cognitive Function Orientation: A&O x 4 Level of Consciousness: Alert Cognition: WNL Estimated Intelligence: Normal Insight: WNL Judgment Within Normal Limits: Yes - Medication Compliance Cooperative with Inpatient Medication Regimen: Yes - Group Participation Participates in Group Activities: Yes DC Assessment - Assessment Clinical Impression: First inpatient psychiatric admission for this 22-year-old 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 His medical history is remarkable for the fact that he is status post overdose of diphehydramine, and delirium and treatment in the intensive care unit. He has stabilized in this setting and started antidepressant therapy. He is agreeable to ongoing therapy. He does not meet criteria for emergency hospitalization. DIAGNOSTIC IMPRESSIONS: 1. Adjustment disorder with mixed disturbances of emotion and conduct. 2. Major depressive disorder, recurrent, moderate, without psychotic features. Merits Inpatient Hospitalization: No Clear for Discharge: Adequate Clinical Respons, Acceptable Safety Profile Inpatient DSM-V Dx: F33.1 Discharge Planning - Discharge Planning Discharge Plan: Outpatient Follow Up Outpatient Program: [facility] at [place] Recommendations for Continuing Care: Medication Management, Psychotherapy, Primary Care Followup Medications: Current Medications Escitalopram Oxalate (Lexapro *) 10 mg PO DAILY DAYO Last Admin: 11/23/18 09:01 Dose: 5 mg Discharge Planning: Prescriptions provided for discharge [x] Yes [] No Follow up care details as per social work arrangements: [facility]- [facility], Internal Medicine Patient response to discharge plan: [x] eager for discharge [x] agreeable with discharge plan [] ambivalent about discharge [] disagrees with discharge today
--- NOTE | 2018-11-23 16:21 | PN ---
BSU: Group Therapy Note - Service Type Service Type: [id number] Group Psychotherapy - Medication Education Group: Patient was attentive and participatory in group, and remained in good behavioral control. Patient expressed positive insights regarding relevant treatment interventions. Patient stated understanding of material discussed and had appropriate questions.
--- NOTE | 2018-11-24 15:42 | DS ---
CC: [facility] DISCHARGE SUMMARY: DATE OF ADMISSION: To the mental health unit, 11/20/18 DATE OF DISCHARGE: 11/23/18 SUPERVISING PSYCHIATRIST: Dr. Juan Pablo Mills. DISCHARGE DIAGNOSIS: Major depressive disorder. CONDITION AT THE TIME OF DISCHARGE: Improved. The patient is euthymic with bright affect. He denie s side effects from escitalopram. He agrees to a meeting with his parents and treatment team. We di scussed major depressive disorder and recommendations for ongoing treatment. The patient denies SI o r passive wish. The patient endorses future orientation including completing his college degre e. The patient and parents noted to have positive and loving interactions. The patient is discharged to home with his parents. The patient and parents given recommendations for safety planning and yani ns restriction. Questions answered. Both patient and his parents report readiness for discharge and agreement with discharge plan. MENTAL STATUS EXAM: The patient is well groomed, thin stature and casually dressed in his own clothi ng. He is pleasant, cooperative, and answers questions slowly. Eye contact is good. Concentration i s good. Memory is 3/3. Speech is normal rate, rhythm, and volume. There are no perceptual disturba nces noted. Thought process is coherent, logical, and goal directed. Thought content is negative fo r suicidal ideation or passive wish. He denies HI or . He denies auditory or visual halluci nations. He denies delusional thinking. There is no evidence of a thought disorder. Insight and ju dgment are good. Fund of knowledge is excellent. INSTRUCTIONS GIVEN TO PATIENT: A. Medications: Escitalopram 10 mg p.o. daily. He was prescribed a 30-day supply as the family will be travelling to [facility] in the next month. I also agreed to provide another 30-day supply to their local pharmacy in [place], [place]. B. Diet: Regular. C. Acti vity: Ambulation as tolerated. Tobacco cessation is not applicable. There are no pending labs or di agnostic studies. D. Followup care: The patient will follow up immediately with [facility] and has an appointment day after discharge. He will follow up with therapy resources given to the jasmeet by Social Work in the [place], [place] area. E. Substance use followup is not applicable . HOSPITAL COURSE: Part A: Reason for admission: The patient was initially admitted to [facility] on 9. He was brought to the ED by [facility] after taking an overdose of [id number] Benadryl . His family came in from out of town from [place] with the understanding that they would be attend ing his [employer] graduation this weekend. Apparently, David is not allowed to walk in graduation and d id not tell his family that he was not graduating and took what appeared to be a box of Benadryl that contained 24 tablets. He disclosed this to family and endorsed suicide attempt. The patient's famil y members took him to [facility] and then was transferred to the ED. The patient was adm itted to the ICU for medical stabilization and observation. Psychiatry was consulted and the patient was seen by covering psychiatrist when admitted to the behavioral services unit the following day on 11/19/18. Part B: Psychiatric treatment rendered: The patient met with admitting psychiatrist, and according to the admission note, the patient reported social isolation since coming to [place] 4 years ago. Michael garcia patient had 1 friend who was also from [place], but in the second semester of his geraldo, the ankita sharpe left [employer] and moved to [place]. From that point on, he was feeling increasingly depressed, unm otivated and spending more time on the internet and less time studying. His grades declined. He miky led the class that spring and was told he could retake at the end of his senior year. Last fall, he moved out of his apartment on campus to live independently in an apartment in [facility]. He initially tri ed to cook his meals, but quickly gave up and started eating takeout. At some point, he felt guilty that he is wasting his parents' money and started restricting food. Reports he was eating 1 meal sherwin ry other day. This made him feel more tired with impaired attention and concentration. 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 He asserts that fdc through college he realized that he did not like [employer] engineering, so he procrastinated on the assignment and did not submit it in time. Last , he was told he had to make up for the 2 classes in order to graduate. He was given options o f classes he could take that would give him credits for the classes he missed, but the semester was i n process and there was little time to complete the alternative assignment. His advisor instructed edu sánchez to call the professor and try to get an override, but he did not do this. Now, it is graduation andrea ayala and the patient woke up in a panic as his parents were scheduled to arrive around 10:30. At 9:30 the morning of 11/18/18, he took approximately 20 pills of Benadryl 25 mg. His parents showed up an d he disclosed that he had not met the requirements to graduate and that he had also taken an overdos e of pills. Parents rushed him to [place] where he was transported to the hospital by ambulance. He was in a delirious state, was admitted to ICU and medically stabilized. The patient was admitted to the adult behavioral services unit on voluntary status. On the third day of admission to the B[facility], t he patient met with psychiatrist and discussed use of escitalopram. Initially, the patient was hesit ant to start antidepressant therapy. He was working on the MMPI and preferred to have these results prior to starting the medication. He denied suicidal ideation and reported being grateful that his o verdose did not end his life. He spoke with the [employer] creative services manager and set up meetings to discus s possibility of completing his college degree. The patient completed MMPI and endorsed significant depression. He agreed to start escitalopram and did so at 5 mg. He denied effects from this medicat ion and stated understanding of expectations from this medication. The patient reported desire to be referred to outpatient therapy. As stated above, he, his parents, this loan underwriter and social service technician, Adriel Bansal, [facility] met the family to discuss discharge planning and treatment recommendations. The benedicto pickering did very well in this setting. He was calm and in behavioral control. He attended groups, was noted to be euthymic and interactive with peers and staff. He decreased to 30-minute observation, wa s allowed staff pass and computer use. The patient and parents expressed appreciation for treatment and agreed with discharge plan. The patient and parents discussed ways to communicate in order to id entify effective ways to express emotions. The patient and parents were encouraged to call after dis charge with any questions or concerns. Due to obligation to treat him in means restrictive setting, discharge was agreed upon by treatment team. BRIDGER ALTMAN, CAREER TRANSITION SPECIALIST [id number]/[facility] #: [id number]
== END 2018-11-23 17:00 | disposition home or self-care (01) | DRG 882 ==
LOC: EDBD 19:15 → BSU 19:15
PROVIDERS: ADMIT Psychiatry & Neurology Psychiatry; ATTEND Psychiatry & Neurology Psychiatry
DX: F43.25 Adjustment disorder with mixed disturbance of emotions and conduct (principal); F33.1 Major depressive disorder, recurrent, moderate; R41.0 Disorientation, unspecified; T45.0X2D Poisoning by antiallergic and antiemetic drugs, intentional self-harm, subsequent encounter; Y92.214 College as the place of occurrence of the external cause
CPT/HCPCS: 36415; 80061; 83036; 99222; 99231